=== PATIENT | female | born 1975 | race Caucasian/White ===

== ENCOUNTER 2016-09-26 14:10 | Emergency (ER) | payer OTHER ==
--- NOTE | ~2016-09-26 | CR142 ---
[facility] A Service of [facility] & [facility] RADIOLOGY TEXT RESULTS PATIENT: ALOK HILLIARD LOCATION: CFTX : 79 UNIT #: [id number] AGE: [address]: Deya Ha SEX: F ORDER DR: [id number] [facility] [address] [place], [place] [address] [id number] E MR#: [id number] Acc #: [id number] NAME: ALOK HILLIARD : 1975 SEX: F STUDY DATE/TIME: 09/26/2016 1338 UNIT: [facility] ROOM: STUDY DESCRIPTION: CR Hand Min 3 Views Rt Attending Physician: Deya Ha P.A.-C. Ordering Physician: Deya Ha P.A.-C. Primary Care Physician: Ford Molina M.D. MEDICAL IMAGING REPORT This report is preliminary unless electronic signature is present EXAM Right hand 3 views 09/26/2016 1338 hours HISTORY Patient fell onto right hand 4 days ago with persistent pain and swelling. COMPARISON None. FINDINGS AP, lateral and oblique views demonstrate normal bone density. There is an acute mildly displaced slightly angulated transverse fracture of the distal fifth metacarpal. This is a closed fracture. No other fracture is seen. IMPRESSION Acute, closed, mildly displaced and angulated fracture of the distal fifth metacarpal. No intraarticular extension. Dictated by... Sarah Schroeder M.D. THIS IS AN ELECTRONICALLY VERIFIED REPORT Sarah Schroeder M.D. at 09/26/2016 6:59 PM [place] TD: 09/26/2016 17:29 JOB #: [id number] MEDICAL IMAGING REPORT COPY
[~2016-09-26 14:10] MED LIST: ALBUTEROL17 GM INH; ALLERGY10 M2 PO; BENTYL10 MG PO; MONTELUKAST SOD10 MG PO; OMEPRAZOLE20 M2 PO; PHENERGAN25 MG PO
== END 2016-09-26 14:13 | disposition home or self-care (01) ==
LOC: CFTX 14:10
DX: S62.316A Displaced fracture of base of fifth metacarpal bone, right hand, initial encounter for closed fracture (principal); F32.9 Major depressive disorder, single episode, unspecified; K21.9 Gastro-esophageal reflux disease without esophagitis; E03.9 Hypothyroidism, unspecified; Z79.899 Other long term (current) drug therapy; Z88.2 Allergy status to sulfonamides; W01.0XXA Fall on same level from slipping, tripping and stumbling without subsequent striking against object, initial encounter; Y92.009 Unspecified place in unspecified non-institutional (private) residence as the place of occurrence of the external cause
CPT/HCPCS: 29125; 73130; 99283

== ENCOUNTER 2016-10-06 22:00 | Emergency (ER) | payer OTHER | END 2016-10-06 23:08 | disposition left against medical advice (07) | LOC: CED 22:00 | DX: Z53.21 Procedure and treatment not carried out due to patient leaving prior to being seen by health care provider (principal) ==